=== PATIENT | female | born 1990 | race Caucasian/White ===

== ENCOUNTER 2017-12-07 00:32 | Emergency (ER) | payer OTHER ==
[~2017-12-07] VITALS: Ht 167.6 cm; Wt 81.8 kg
[2017-12-07] MEDS ORDERED: ESCI10TA PO (01:01)
[2017-12-07] MEDS ORDERED: MINO50CA36 PO (01:01)
[2017-12-07] MEDS ORDERED: HYDR-3705 PO (01:01)
[2017-12-07] MEDS ORDERED: AMOX TR/POT CLAV 875 MG/125 MG TABLET PO ONE (02:15)
[2017-12-07] MEDS ORDERED: ACETAMINOPHEN 500 MG TABLET PO ONE (02:15)
[2017-12-07] MEDS ORDERED: KETOROLAC TROMETHAMINE 60 MG/2 ML VIAL IM ONE (02:15)
[2017-12-07 03:00] VITALS: BP 136/71
== END 2017-12-07 03:36 | disposition home or self-care (01) ==
LOC: EMS 00:34
DX: K04.7 Periapical abscess without sinus (principal); F32.9 Major depressive disorder, single episode, unspecified; F41.9 Anxiety disorder, unspecified; Z79.899 Other long term (current) drug therapy
CPT/HCPCS: 96372; 99283; J1885